=== PATIENT | male | born 1970 | race Caucasian/White ===

== ENCOUNTER 2019-04-05 14:31 | Emergency (ER) | payer SELFPAY ==
[~2019-04-05] VITALS: Ht 177.8 cm; Wt 79.0 kg
[2019-04-05] MEDS ORDERED: LORAZEPAM 1MG TABLET PO ONE (16:15)
[2019-04-05] MEDS ORDERED: QUETIAPINE FUMARATE 50MG TABLET PO SCH (16:34)
[2019-04-05 18:00] LABS: BASOPHILS % 0.3 % (0.0-2.0); EOSINOPHILS % 0.1 % (0.0-5.0); HEMATOCRIT. 36.2 % (42.0-52.0); HEMOGLOBIN. 12.7 g/dL (14.0-18.0); LYMPHOCYTES % 23.4 % (20.0-50.0); MEAN CORPUSCULAR HEMOGLOBIN 30.2 pg (28.0-32.0); MEAN PLATELET VOLUME 8.9 fl (7.4-10.4); NEUTROPHILS % 66.2 % (40.0-76.0); PLATELET 208 x1000/uL (130-400); RED CELL DISTRIBUTION WIDTH 13.2 % (11.6-14.6)
[2019-04-05 18:05] LABS: CHLORIDE 97 mEq/L (98-107)
[2019-04-05 18:09] LABS: ETHANOL BLOOD < 10 mg/dL
[2019-04-05] MEDS ORDERED: POTASSIUM CHLORIDE 20MEQ TABLET SR PO ONE (18:30)
[2019-04-06] MEDS ORDERED: HALOPERIDOL LACTATE 5MG/ML VIAL IM ONE (03:00)
[2019-04-06] MEDS ORDERED: LORAZEPAM 1MG TABLET PO ONE (14:45)
[2019-04-06 17:59] VITALS: BP 115/73
== END 2019-04-06 18:00 | disposition home or self-care (01) ==
LOC: ER 14:33
DX: R45.851 Suicidal ideations (principal); F29 Unspecified psychosis not due to a substance or known physiological condition; E87.6 Hypokalemia; F23 Brief psychotic disorder; F20.9 Schizophrenia, unspecified; R44.3 Hallucinations, unspecified
CPT/HCPCS: 36415; 80053; 80307; 80320; 80329; 85025; 99284; J1630; Z7610; G0480